=== PATIENT | female | born 1970 | race African-American/Black ===

== ENCOUNTER 2017-09-11 21:26 | Emergency (ER) | payer MEDICARE, MEDICAID ==
[~2017-09-11] VITALS: Ht 144.8 cm; Wt 61.0 kg
[~2017-09-11 21:26] MED LIST: KEPP500 PO
[2017-09-11 23:33] VITALS: BP 122/69
[2017-09-11] MEDS ORDERED: SODIUM CHLORIDE 0.9% 1,000 ML IV ONE (23:46)
[2017-09-12 00:26] LABS: CHLORIDE 99 mEq/L (98-107)
[2017-09-12 00:27] LABS: BASOPHILS % 1.1 % (0.0-2.0); EOSINOPHILS % 0.7 % (0.0-5.0); HEMATOCRIT. 25.6 % (36.0-48.0); HEMOGLOBIN. 7.5 g/dL (12.0-16.0); MEAN CORPUSCULAR HEMOGLOBIN 19.3 pg (28.0-32.0); MEAN CORPUSCULAR VOLUME 65.4 fL (81.0-99.0); MEAN PLATELET VOLUME 8.7 fl (7.4-10.4); MONOCYTES % 13.3 % (2.0-8.0); NEUTROPHILS % 66.9 % (40.0-76.0); PLATELET 258 x1000/uL (130-400); RED BLOOD CELL COUNT 3.91 mill/uL (4.2-5.4)
[2017-09-12 00:34] LABS: CARBON DIOXIDE 26 mEq/L (21-32)
[2017-09-12 01:31] LABS: PLATELET ESTIMATE NORMAL
[2017-09-29] MEDS ORDERED: LAMO200T PO (23:35)
[2017-09-29] MEDS ORDERED: CLON0.5T4 PO (23:36)
[2017-09-29] MEDS ORDERED: CARBITOL PO (23:49)
== END 2017-09-12 07:00 | disposition home or self-care (01) ==
LOC: ER 22:22
DX: K94.23 Gastrostomy malfunction (principal); G80.9 Cerebral palsy, unspecified; Z88.8 Allergy status to other drugs, medicaments and biological substances
CPT/HCPCS: 36415; 74000; 80053; 85025; 96360; 96361; 99285; J7030

== ENCOUNTER 2021-07-13 17:01 | Emergency (ER) | payer MEDICARE, MEDICAID ==
[~2021-07-13] VITALS: Ht 144.8 cm; Wt 59.0 kg
[~2021-07-13 17:01] MED LIST changes: +CARB300C GT; +CLON0.5T4 PO; +KEPPSOL GT; +LAMO200T9 PO
[2021-07-13] MEDS ORDERED: DIATR MEGLU/DIATRIZOATE SOLN 30ML GT ONE (22:30)
[2021-07-13] MEDS ORDERED: DIATR MEGLU/DIATRIZOATE SOLN 30ML ONE (22:31)
[2021-07-14 00:25] VITALS: BP 150/86
== END 2021-07-14 00:49 | disposition home or self-care (01) ==
LOC: ER 17:01
DX: Z43.1 Encounter for attention to gastrostomy (principal); G80.9 Cerebral palsy, unspecified; G40.909 Epilepsy, unspecified, not intractable, without status epilepticus; F79 Unspecified intellectual disabilities; Z88.6 Allergy status to analgesic agent; Z79.899 Other long term (current) drug therapy; Z88.8 Allergy status to other drugs, medicaments and biological substances
CPT/HCPCS: 43762; 74018; 99284; Q9963; 43760